=== PATIENT | male | born 1930 | race Caucasian/White ===

== ENCOUNTER 2017-06-14 14:34 | Day surgery (SDC) | payer MEDICARE, BC ==
[2017-06-14 14:41] VITALS: BP 126/68
== END 2017-06-14 14:35 | disposition home or self-care (01) ==
LOC: AMB 14:34
PROVIDERS: ATTEND Ophthalmology
PROC: 085K3ZZ Destruction of Left Lens, Percutaneous Approach (ICD-10-PCS; principal; 2017-06-14 14:00)
DX: H26.492 Other secondary cataract, left eye (principal); Z68.25 Body mass index [BMI] 25.0-25.9, adult

== ENCOUNTER 2019-10-28 10:52 | Observation (INO) ==
[~2019-10-28 10:52] MED LIST: MULTIVIT-MIN/FA/LYCOPEN/LUTEIN 1 TAB TABLET PO SCH
[2019-10-28] MEDS ORDERED: NORMAL SALINE 1,000 ML IV ONE ×2 (11:19→12:20)
[2019-10-28] MEDS ORDERED: ACETAMINOPHEN 650 MG SUPP.RECT RC ONE (11:20)
--- NOTE | 2019-10-28 11:23 | ERNOTE ---
Medical Problem HPI - Narrative Date of Service: 10/28/19 - General Chief Complaint: General Assessment Time Seen by Provider: 10/28/19 11:07 Source: patient, family - Immun/Allergies/Home Medications Allergies/Adverse Reactions: Allergies phenobarbital Adverse Reaction (Mild, Verified 10/28/19 11:39) BLISTERS BEHIND EARS AND FINGERS Home Medications: HOME MEDICATIONS multivitamin 1 tab PO DAILY 02/08/18 [Last Taken Unknown] levothyroxine 50 mcg tablet 50 mcg PO DAILY #90 tab 04/28/19 [Last Taken Unknown] carbidopa ER 25 mg-levodopa 100 mg tablet,extended release 1 tab PO BID 07/27/19 [Last Taken Unknown] Carbidopa/Levodopa [Carbidopa-Levo 25-100 mg Odt] 1 ea PO Q4H 10/28/19 [Last Taken Unknown] - History of Present History Narrative: 89-year-old male brought from home said he was having trouble getting up and walking this morning patient in the emergency room was able to get up from wheelchair walk to the stretcher however he feels very hot and says he hurts all over all his joints his muscles ache denies any cough difficulty breathing pulse ox is 94% on room air has good had some urinary problems in the past and apparently seems to be extremely dehydrated Date (Duration): 10/28/19 Time (Timing): 11:13 Timing: getting worse Severity: moderate Modifying Factors - (Improves): Absent: cold therapy Modifying Factors - (Worsens): Absent: cold therapy Review of Systems - Review of Systems Constitutional: Present: fever, weakness, fatigue, decreased activity level EYE: Present: no symptoms reported ENT: Present: no symptoms reported Respiratory: Present: no symptoms reported Cardiology: Present: no symptoms reported Gastrointestinal/Abdominal: Present: no symptoms reported Genitourinary: Present: frequency, decreased urinary output Musculoskeletal: Present: back pain, muscle stiffness Skin: Present: no symptoms reported Neurological: Present: weakness, pre-existing deficit Endocrine: Present: no symptoms reported Hematologic/Lymphatic: Present: no symptoms reported Psych: Present: no symptoms reported All Other Systems: All systems neg except as marked Medical History (Last Reviewed 10/28/19 @ 11:15 by Bill Villanueva MD) Parkinson's disease (Chronic) 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) Onset Date: ~05/01/13 Medial meniscus tear (Chronic) Onset Date: ~05/18/13 Degenerative joint disease of knee (Chronic) Onset Date: ~05/18/13 Hernia, hiatal (Chronic) Onset Date: ~08/02/13 Colon polyps (Chronic) Onset Date: ~10/09/14 Acne Onset Date: Unknown Arthritis Onset Date: Unknown Urinary retention Onset Date: Unknown Surgical History: Surgical History (Last Reviewed 10/28/19 @ 11:15 by Bill Villanueva MD) Cataract Onset Date: ~07/05/14 bilat H/O colonoscopy Onset Date: ~11/05/14 History of tonsillectomy Onset Date: ~1938 Family History: Family History (Last Reviewed 07/27/19 @ 13:36 by Ruth Albrecht RN) Brother Aneurysm Brother Heart disease Father Cancer colon Mother Heart disease Sister Cancer Social History: (Last Updated 08/11/19 @ 04:51 by Jeremy Larsen DO) Social History: current occupational status: retired Service: Yes branch: [employer] Tobacco: Smoking Status: Never smoker Alcohol: alcohol intake: never Substance Use: substance use type: does not use Dietary Habits: caffeine: Yes Physical Exam - Physical Exam General Appearance: Present: moderate distress, lethargic Head Exam: Present: normal inspection, no evidence of injury Eye Exam: Normal inspection: bilateral Ears, Nose, Throat: Present: pharyngeal erythema, dry mucous membranes Neck: Present: normal inspection, limited range of motion Respiratory: Present: no respiratory distress, normal breath sounds Cardiovascular/Chest: Present: tachycardia Gastrointestinal/Abdominal: Present: normal bowel sounds, nontender Back Exam: Present: normal inspection, decreased range of motion Extremity Exam: Present: non-tender, pedal edema, extremity edema. Absent: no edema, calf tenderness Neurological Exam: Present: alert, oriented, motor weakness, disoriented to time, disoriented to situation Skin Exam: Present: warm/dry Lymphatic Exam: Present: no adenopathy Progress - Results and Orders Patient's Lab Results:: I have reviewed the patient's lab results. Results and Orders: Laboratory Tests 10/28/19 10/28/19 10/28/19 11:24 11:24 11:33 WBC 13.0 H RBC 4.18 L Hgb 13.3 L Hct 38.9 L MCV 93.1 MCH 31.8 H MCHC 34.2 RDW 12.2 MPV 8.7 Neutrophils % 86.9 H Lymphocytes % 5.7 L Sodium Plasma Sodium Potassium Chloride Carbon Dioxide Anion Gap BUN Creatinine Est GFR (Non-Af Amer) BUN/Creatinine Ratio Random Glucose Lactic Acid, Venous Calcium Calcium Adj for Albumin Total Bilirubin AST ALT Alkaline Phosphatase Troponin I B-Natriuretic Peptide Total Protein Albumin Influenza Type A Ag Negative Influenza Type B Ag Negative Group A Strep Rapid Negative 10/28/19 10/28/19 11:33 11:33 WBC RBC Hgb Hct MCV MCH MCHC RDW MPV Neutrophils % Lymphocytes % Sodium 142 Plasma Sodium 142 Potassium 3.7 Chloride 104 Carbon Dioxide 28.3 Anion Gap 13.4 BUN 18 Creatinine 1.08 Est GFR (Non-Af Amer) 69 BUN/Creatinine Ratio 16.7 Random Glucose 110 Lactic Acid, Venous 1.0 Calcium 8.8 Calcium Adj for Albumin 8.8 Total Bilirubin 3.0 H AST 17 ALT 5 L Alkaline Phosphatase 72 Troponin I 0.087 B-Natriuretic Peptide 1205 H Total Protein 6.2 Albumin 3.6 Influenza Type A Ag Influenza Type B Ag Group A Strep Rapid Laboratory Tests 10/28/19 12:15 Urine Color Yellow Urine Appearance Cloudy Urine pH 6.0 Ur Specific [place] 1.015 Urine Protein Negative Urine Glucose (UA) Negative Urine Ketones 15 Urine Blood 150 H Urine Nitrate Positive H Urine Bilirubin Negative Urine Urobilinogen Normal Ur Leukocyte Esterase 500 H Urine RBC 0-5 Urine WBC >50 H Ur Epithelial Cells 0-5 Urine Bacteria 4+ H Urine Culture Comments Culture to follow - Vital Signs Vital Signs: Vital Signs 10/28/19 10:59 Temperature 37.9 C Pulse Rate 114 H Respiratory Rate 22 H Blood Pressure 117/61 O2 Sat by Pulse Oximetry 94 - EKG EKG #1 EKG: NSR EKG read: Interp. by me - X-Ray X-Ray #1 X-Ray: chest Interpretation: Reviewed by Mónica mason w/ radiologist X-ray Comments: No acute disease - Progress/Reassessment Chief Complaint: General Assessment Plan - Plan Plan: All tests are back lab work shows an elevated WBC count of 13,003 infected urine lactic acid is normal urine shows WBCs esterase RBCs we given a dose of Rocephin and due to his age for his Parkinson's will be admitted for continual IV antibiotic Admit to Dr. Zhang Holcomb excepting Departure Clinical Impression: Sepsis due to urinary tract infection - Departure Disposition: Short Term Hospital Inpatient Condition: Stable
[2019-10-28 11:41] LABS: Hematocrit 38.9 % (42.0-52.0); Hemoglobin 13.3 gm/dL (13.5-18.0); Mean Cell Volume 93.1 fl (78-100); Mean Corpuscular Hemoglobin 31.8 pg (27-31); Mean Corpuscular Hgb Conc 34.2 g/dl (32-36); Mean Platelet Volume 8.7 fl (8-11.3); Neutrophil # 11.3 K/mm3 (1.3-6.0); Neutrophil % 86.9 % (42-75.0); Platelet Count 110 K/mm3 (150-450); Red Blood Count 4.18 M/mm3 (4.7-6.0); Red Cell Distribution Width 12.2 % (11.5-14.0)
[2019-10-28 11:59] LABS: Albumin * 3.6 gm/dl (3.4-5.0); Anion Gap 13.4 mmol/L (6.8-13.8); BUN/Creatinine Ratio 16.7 (9.0-21.6); Ca. Corrected For Albumin 8.8 mg/dL (8.4-10.2); Calcium * 8.8 mg/dL (7.9-10.9); Carbon Dioxide 28.3 mmol/L (24-32.6); Potassium 3.7 mmol/L (3.4-4.6); Total Protein 6.2 gm/dL (6.2-8.2)
[2019-10-28 12:00] LABS: Troponin I 0.087 ng/mL (0.00-0.10)
[2019-10-28 12:30] LABS: Urine Appearance Cloudy (CLEAR); Urine Color Yellow
[2019-10-28 12:31] LABS: Urine Bilirubin Negative (NEGATIVE); Urine Blood 150 /ul (NEGATIVE); Urine Ketone 15 mg/dL (NEGATIVE); Urine Nitrite Positive (NEGATIVE); Urine Protein Negative (NEGATIVE); Urine Specific Gravity 1.015 SP.GR. (1.005-1.030); Urine Urobilinogen Normal (NORMAL)
[2019-10-28 12:32] LABS: Urine Bacteria 4+; Urine WBC >50 /hpf (0-5)
[2019-10-28 12:34] LABS: Urine RBC 0-5 /hpf (0-5)
[2019-10-28] MEDS ORDERED: cefTRIAXone SODIUM 1,000 MG/100 ML BAG IV ONE (12:38)
[2019-10-28] MEDS: ACETAMINOPHEN 500 MG TABLET PO PRN (15:30)
--- NOTE | 2019-10-28 17:44 | HP ---
Chief Complaint - Chief Complaint Date of Service: 10/28/19 Time of Service: 17:30 Chief Complaint: Fever, chills, bilateral flank pain, weakness History of Present Illness: Kashif Billings is an 89-year-old male patient who has Parkinson's disease but otherwise has been in good health. About 4 days ago he began having fever and chills and flank pain which is increased over those 4 days. He has increased frequency and urgency and some incontinence. Is evaluated in the emergency room and found to have a urinary tract infection. He does not meet sepsis criteria. However, I suspect he has pyelonephritis and a bacteremia. Blood cultures were drawn in the emergency room. He has been started on Rocephin 1 g in ER and is received a couple of liters of IV fluids there. At the time of my exam he is sitting up in a chair and feeling some better already although still having quite a lot of flank pain bilaterally. His temperature high has been 99 7 here. His other vital signs have been normal. He is not hypotensive or tachycardiac. ED has a mildly elevated white count 13,000 with a left shift in the differential. His lactic acid is only 1.0. Sepsis protocol is therefore not initiated. 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) Onset Date: ~05/01/13 Medial meniscus tear (Chronic) Onset Date: ~05/18/13 Degenerative joint disease of knee (Chronic) Onset Date: ~05/18/13 Hernia, hiatal (Chronic) Onset Date: ~08/02/13 Colon polyps (Chronic) Onset Date: ~10/09/14 Acne Onset Date: Unknown Arthritis Onset Date: Unknown Urinary retention Onset Date: Unknown Surgical History: Surgical History (Last Reviewed 10/28/19 @ 13:59 by Noemi Ornelas RN) Cataract Onset Date: ~07/05/14 bilat H/O colonoscopy Onset Date: ~11/05/14 History of tonsillectomy Onset Date: ~193 Family History: Family History (Last Reviewed 10/28/19 @ 13:59 by Noemi Ornelas RN) Brother Aneurysm Brother Heart disease Father Cancer colon Mother Heart disease Sister Cancer Social History: (Last Reviewed 10/28/19 @ 14:02 by Noemi Ornelas RN) Social History: prison: No Marital status: household members: spouse current occupational status: retired Highest education level completed: Bachelor's degree Service: Yes branch: [employer] Tobacco: Smoking Status: Never smoker Alcohol: alcohol intake: never Substance Use: substance use type: does not use Dietary Habits: caffeine: Yes Type: carbonated beverages Review Of Systems (GEN) - Review of Systems Generalized/Overall Review: Present: Weakness EENTM: Present: No Symptoms Reported Respiratory: Present: No Symptoms Reported Cardiac: Present: No Symptoms Reported Abdominal: Present: No Symptoms Reported Genitourinary: Present: Burning, Urgency, Frequency, Incontinent, Dysuria Musculoskeletal: Present: No Symptoms Reported Neurological: Present: Tremors - Parkinsonianbilateral, Weakness Skin: Present: No Symptoms Reported Endocrine: Present: No Symptoms Reported Allergies/Adverse Reactions: Allergies Allergy/AdvReac Type Severity Reaction Status Date / Time phenobarbital AdvReac Mild BLISTERS Verified 10/28/19 14:03 BEHIND EARS AND FINGERS Home Medications: HOME MEDICATIONS levothyroxine 50 mcg tablet 50 mcg PO DAILY #90 tab 04/28/19 [Last Taken Unknown] carbidopa ER 25 mg-levodopa 100 mg tablet,extended release 1 tab PO BID 07/27/19 [Last Taken Unknown] Carbidopa/Levodopa [Carbidopa-Levo 25-100 mg Odt] 1 ea PO 1100,1600,2300 10/28/19 [Last Taken Unknown] Multivit-Minerals/Folic Acid [Men's Multivitamin Gummies] 400 mcg PO DAILY 10/28/19 [Last Taken Unknown] Exam - Exam Vital Signs: Vital Signs - Last Taken Temp 37.0 C 10/28/19 14:05 Pulse 88 10/28/19 14:05 Resp 16 10/28/19 14:05 BP 120/57 10/28/19 14:05 Pulse Ox 94 10/28/19 14:05 Constitutional: Present: Alert, Oriented x3, Cooperative, Well developed, Well nourished, No distress ENT Exam: Present: normal ENT inspection, hearing grossly normal, pharynx normal Eye Exam: bilateral eye: normal inspection, PERRL, EOMI Neck: Present: non-tender, supple, limited range of motion Back Exam: Present: normal inspection, CVA tenderness (R), CVA tenderness (L) Breasts: Present: Exam deferred Respiratory: Present: chest non-tender, lungs clear, normal breath sounds, no respiratory distress, no accessory muscle use Cardiovascular/Chest: Present: normal peripheral pulses, regular rate, rhythm, no chest tenderness, no edema, no gallop, no JVD, no murmur, no rub Peripheral Pulses: carotid (R): 2+, carotid (L): 2+, radial (R): 2+, radial (L): 2+ Abdomen: Present: Normal bowel sounds, soft, nontender, nondistended, no rebound tenderness, no hepatospenomegaly, no masses /Rectal: Present: Exam deferred Extremity: Present: normal range of motion, non-tender, normal inspection, no pedal edema, no calf tenderness, normal capillary refill Skin Exam: Present: normal color, warm/dry, no cyanosis Lymphatic: Present: no adenopathy Neurologic: Present: foundation assistant II-XII nml as tested, alert, normal mood/affect, oriented x 3 Appearance: Present: appropriate appearance, appropriate insight, neat, no memory impairment Eye contact: Present: cooperative, good eye contact. Absent: normal speech - Speech is weak primarily from his Parkinson's disease. He communicates appro priately however. Thoughts: Present: normal thought pattern, no apparent hallucination Diagnostic Studies: Abnormal Lab Results 10/28/19 10/28/19 10/28/19 Range/Units 11:33 11:33 12:15 WBC 13.0 H (4.0-10.5) K/mm3 RBC 4.18 L (4.7-6.0) M/mm3 Hgb 13.3 L (13.5-18.0) gm/dL Hct 38.9 L (42.0-52.0) % MCH 31.8 H (27-31) pg Plt Count 110 L (150-450) K/mm3 Immature Gran % (Auto) 0.60 H (0.001-0.429) % Immature Gran # (Auto) 0.08 H (0.000-0.0310) K/mm3 Neutrophils % 86.9 H (42-75.0) % Lymphocytes % 5.7 L (20-51) % Neutrophils # 11.3 H (1.3-6.0) K/mm3 Lymphocytes # 0.74 L (1.5-3.5) k/mm3 Total Bilirubin 3.0 H (0.0-1.1) mg/dL ALT 5 L (19-67) U/L B-Natriuretic Peptide 1205 H (5-650) pg/mL Urine Blood 150 H (NEGATIVE) /ul Urine Nitrate Positive H (NEGATIVE) Ur Leukocyte Esterase 500 H (NEGATIVE) /ul Urine WBC >50 H (0-5) /hpf Urine Bacteria 4+ H (NONE) Laboratory Results WBC 13.0 K/mm3 (4.0-10.5) H 10/28/19 11:33 RBC 4.18 M/mm3 (4.7-6.0) L 10/28/19 11:33 Hgb 13.3 gm/dL (13.5-18.0) L 10/28/19 11:33 Hct 38.9 % (42.0-52.0) L 10/28/19 11:33 MCV 93.1 fl (78-100) 10/28/19 11:33 MCH 31.8 pg (27-31) H 10/28/19 11:33 MCHC 34.2 g/dl (32-36) 10/28/19 11:33 RDW 12.2 % (11.5-14.0) 10/28/19 11:33 Plt Count 110 K/mm3 (150-450) L 10/28/19 11:33 MPV 8.7 fl (8-11.3) 10/28/19 11:33 Immature Gran % (Auto) 0.60 % (0.001-0.429) H 10/28/19 11:33 Immature Gran # (Auto) 0.08 K/mm3 (0.000-0.0310) H 10/28/19 11:33 Neutrophils % 86.9 % (42-75.0) H 10/28/19 11:33 Lymphocytes % 5.7 % (20-51) L 10/28/19 11:33 Monocytes % 6.6 % (0.0-9) 10/28/19 11:33 Eosinophils % 0.0 % (0.0-3.0) 10/28/19 11:33 Basophils % 0.2 % (0.0-1.0) 10/28/19 11:33 Nucleated RBC % 0.0 k/mm3 (0-1) 10/28/19 11:33 Neutrophils # 11.3 K/mm3 (1.3-6.0) H 10/28/19 11:33 Lymphocytes # 0.74 k/mm3 (1.5-3.5) L 10/28/19 11:33 Monocytes # 0.9 k/mm3 (0.0-1.0) 10/28/19 11:33 Eosinophils # 0.0 k/mm3 (0.0-0.7) 10/28/19 11:33 Absolute Basophils 0.0 k/mm3 (0.0-0.1) 10/28/19 11:33 Sodium 142 mmol/L (132-142) 10/28/19 11:33 Plasma Sodium 142 mmol/L (130-142) 10/28/19 11:33 Potassium 3.7 mmol/L (3.4-4.6) 10/28/19 11:33 Chloride 104 mmol/L (97-106) 10/28/19 11:33 Carbon Dioxide 28.3 mmol/L (24-32.6) 10/28/19 11:33 Anion Gap 13.4 mmol/L (6.8-13.8) 10/28/19 11:33 BUN 18 mg/dL (6-23) 10/28/19 11:33 Creatinine 1.08 mg/dL (0.4-1.4) 10/28/19 11:33 Est GFR (Non-Af Amer) 69 mL/min (60-130) 10/28/19 11:33 BUN/Creatinine Ratio 16.7 (9.0-21.6) 10/28/19 11:33 Random Glucose 110 mg/dL (70-110) 10/28/19 11:33 Lactic Acid, Venous 1.0 mmol/L (0.4-2.0) 10/28/19 11:33 Calcium 8.8 mg/dL (7.9-10.9) 10/28/19 11:33 Calcium Adj for Albumin 8.8 mg/dL (8.4-10.2) 10/28/19 11:33 Total Bilirubin 3.0 mg/dL (0.0-1.1) H 10/28/19 11:33 AST 17 U/L (0-48) 10/28/19 11:33 ALT 5 U/L (19-67) L 10/28/19 11:33 Alkaline Phosphatase 72 U/L (50-170) 10/28/19 11:33 Troponin I 0.087 ng/mL (0.00-0.10) 10/28/19 11:33 B-Natriuretic Peptide 1205 pg/mL (5-650) H 10/28/19 11:33 Total Protein 6.2 gm/dL (6.2-8.2) 10/28/19 11:33 Albumin 3.6 gm/dl (3.4-5.0) 10/28/19 11:33 Urine Color Yellow 10/28/19 12:15 Urine Appearance Cloudy (CLEAR) 10/28/19 12:15 Urine pH 6.0 pH (5.0-7.0) 10/28/19 12:15 Ur Specific [place] 1.015 SP.GR. (1.005-1.030) 10/28/19 12:15 Urine Protein Negative mg/dL (NEGATIVE) 10/28/19 12:15 Urine Glucose (UA) Negative mg/dL (NEGATIVE) 10/28/19 12:15 Urine Ketones 15 mg/dL (NEGATIVE) 10/28/19 12:15 Urine Blood 150 /ul (NEGATIVE) H 10/28/19 12:15 Urine Nitrate Positive (NEGATIVE) H 10/28/19 12:15 Urine Bilirubin Negative mg/dl (NEGATIVE) 10/28/19 12:15 Urine Urobilinogen Normal EU/dl (NORMAL) 10/28/19 12:15 Ur Leukocyte Esterase 500 /ul (NEGATIVE) H 10/28/19 12:15 Urine RBC 0-5 /hpf (0-5) 10/28/19 12:15 Urine WBC >50 /hpf (0-5) H 10/28/19 12:15 Ur Epithelial Cells 0-5 /hpf (0-5) 10/28/19 12:15 Urine Bacteria 4+ (NONE) H 10/28/19 12:15 Urine Culture Comments Culture to follow 10/28/19 12:15 Influenza Type A Ag Negative (NEGATIVE) 10/28/19 11:24 Influenza Type B Ag Negative (NEGATIVE) 10/28/19 11:24 Group A Strep Rapid Negative (NEGATIVE) 10/28/19 11:24 Assessment/Plan - Narrative Narrative: 1. Continue IV Rocephin 1 g every 24 hours 2. Continue IV fluids at 125 cc/h and monitor for fluid overload 3. Begin early ambulation and LAILA hose for DVT prophylaxis 4. Continue home medications - Assessment/Plan (1) Acute pyelonephritis Problem: Acute (2) Neutrophilic leukocytosis Problem: Acute (3) Parkinson's disease Problem: Chronic
[2019-10-28] MEDS: NORMAL SALINE 1,000 ML IV PRN (18:20)
[2019-10-28] MEDS ORDERED: CARBIDOPA/LEVODOPA CR 25/100 1 TAB TABLET.SA PO SCH (21:00)
[2019-10-28] MEDS: CARBIDOPA/LEVODOPA 25/100 1 TAB TABLET PO SCH (23:20)
[2019-10-29] MEDS: NORMAL SALINE 1,000 ML IV PRN ×2 (02:26→10:34)
[2019-10-29] MEDS ORDERED: LEVOTHYROXINE SODIUM 50 MCG TABLET PO SCH (06:00)
[2019-10-29] MEDS ORDERED: CARBIDOPA/LEVODOPA CR 25/100 1 TAB TABLET.SA PO SCH (07:00)
[2019-10-29 07:05] LABS: Hematocrit 36.7 % (42.0-52.0); Hemoglobin 12.5 gm/dL (13.5-18.0); Mean Cell Volume 94.1 fl (78-100); Mean Corpuscular Hemoglobin 32.1 pg (27-31); Mean Corpuscular Hgb Conc 34.1 g/dl (32-36); Neutrophil # 9.9 K/mm3 (1.3-6.0); Neutrophil % 87.7 % (42-75.0); Platelet Count 96 K/mm3 (150-450); Red Cell Distribution Width 12.5 % (11.5-14.0); White Blood Count 11.2 K/mm3 (4.0-10.5)
[2019-10-29 07:17] LABS: Albumin * 2.8 gm/dl (3.4-5.0); Anion Gap 12.5 mmol/L (6.8-13.8); BUN/Creatinine Ratio 18.6 (9.0-21.6); Calcium * 8.4 mg/dL (7.9-10.9); Potassium 3.5 mmol/L (3.4-4.6); Total Protein 5.4 gm/dL (6.2-8.2)
[2019-10-29] MEDS: ACETAMINOPHEN 500 MG TABLET PO PRN (07:30)
[2019-10-29] MEDS ORDERED: MULTIVITAMINS 1 TAB TAB.CHEW PO SCH (09:00)
[2019-10-29] MEDS: CARBIDOPA/LEVODOPA 25/100 1 TAB TABLET PO SCH (10:36)
--- NOTE | 2019-10-29 12:47 | DS ---
(1) Acute pyelonephritis Problem: Acute (2) Neutrophilic leukocytosis Problem: Acute (3) Parkinson's disease Problem: Chronic Date of Discharge:: 10/29/19 Hospital Course: Kashif Billings is an 89-year-old male patient with known Parkinson's disease. He had developed fever and weakness and became nonambulatory at home and so was brought to the hospital. He was evaluated in the emergency room and found to have a urinary tract infection. He is also been having bilateral flank pain with fever at home for the past 4 days. The white count was slightly elevated at 13,200 and is down to 11,200 this morning. The differential is shifted left. He has not had any hypotension, tachycardia, or elevated lactic acid. His Edward's test is positive bilaterally. The urine reflected definite urinary tract infection. He has been placed on oral antibiotics and is feeling much better already. He can finish his treatment at home. Procedures Performed: none Results and Findings: Pending Mircobiology Results 10/28/19 11:55 Blood Blood Culture - Preliminary NO GROWTH 24 HOURS 10/28/19 11:33 Blood Blood Culture - Preliminary NO GROWTH 24 HOURS 10/28/19 12:15 Urine,Catheterized Urine Culture - Preliminary Gram Negative Bacilli Lab Pending Results 10/28/19 11:24: Influenza Type A Ag Negative, Influenza Type B Ag Negative 10/28/19 11:24: Group A Strep Rapid Negative 10/28/19 11:33: WBC 13.0 H, RBC 4.18 L, Hgb 13.3 L, Hct 38.9 L, MCV 93.1, MCH 31.8 H, MCHC 34.2, RDW 12.2, Plt Count 110 L, MPV 8.7, Immature Gran % (Auto) 0.60 H, Immature Gran # (Auto) 0.08 H, Neutrophils % 86.9 H, Lymphocytes % 5.7 L, Monocytes % 6.6, Eosinophils % 0.0, Basophils % 0.2, Nucleated RBC % 0.0, Neutrophils # 11.3 H, Lymphocytes # 0.74 L, Monocytes # 0.9, Eosinophils # 0.0, Absolute Basophils 0.0 10/28/19 11:33: Sodium 142, Plasma Sodium 142, Potassium 3.7, Chloride 104, Carbon Dioxide 28.3, Anion Gap 13.4, BUN 18, Creatinine 1.08, Est GFR (Non-Af Amer) 69, BUN/Creatinine Ratio 16.7, Random Glucose 110, Calcium 8.8, Calcium Adj for Albumin 8.8, Total Bilirubin 3.0 H, AST 17, ALT 5 L, Alkaline Phosphatase 72, Troponin I 0.087, B-Natriuretic Peptide 1205 H, Total Protein 6.2, Albumin 3.6 10/28/19 11:33: Lactic Acid, Venous 1.0 10/28/19 12:15: Urine Color Yellow, Urine Appearance Cloudy, Urine pH 6.0, Ur Specific [place] 1.015, Urine Protein Negative, Urine Glucose (UA) Negative, Urine Ketones 15, Urine Blood 150 H, Urine Nitrate Positive H, Urine Bilirubin Negative, Urine Urobilinogen Normal, Ur Leukocyte Esterase 500 H, Urine RBC 0-5, Urine WBC >50 H, Ur Epithelial Cells 0-5, Urine Bacteria 4+ H, Urine Culture Comments Culture to follow 10/29/19 06:30: WBC 11.2 H, RBC 3.90 L, Hgb 12.5 L, Hct 36.7 L, MCV 94.1, MCH 32.1 H, MCHC 34.1, RDW 12.5, Plt Count 96 L, MPV 9.0, Immature Gran % (Auto) 0.30, Immature Gran # (Auto) 0.03, Neutrophils % 87.7 H, Lymphocytes % 6.7 L, Monocytes % 5.0, Eosinophils % 0.0, Basophils % 0.3, Nucleated RBC % 0.0, Neutrophils # 9.9 H, Lymphocytes # 0.75 L, Monocytes # 0.6, Eosinophils # 0.0, Absolute Basophils 0.0 10/29/19 06:30: Sodium 139, Plasma Sodium 139, Potassium 3.5, Chloride 106, Carbon Dioxide 24.0, Anion Gap 12.5, BUN 16, Creatinine 0.86, Est GFR (Non-Af Amer) 89 D, BUN/Creatinine Ratio 18.6, Random Glucose 125 H, Calcium 8.4, Calcium Adj for Albumin 9.0, Total Bilirubin 3.0 H, AST 18, ALT 3 L, Alkaline Phosphatase 57, Total Protein 5.4 L, Albumin 2.8 L Discharge Location: Home Disposition: Home self-care Condition: Stable Face to Face Encounter completed per CMS Guidelines: No Discharge Activity: Activity as tolerated Discharge Diet: General/regular food Additional Patient Instructions (free text): Follow-up with Dr. Valero within the next couple of weeks. Fill antibiotic prescription tomorrow. Complete Home Medications List: Complete Home Medication List: levothyroxine 50 mcg tablet 50 mcg PO DAILY #90 tab 04/28/19 carbidopa ER 25 mg-levodopa 100 mg tablet,extended release 1 tab PO BID 07/27/19 Carbidopa/Levodopa [Carbidopa-Levo 25-100 mg Odt] 1 ea PO 1100,1600,2300 10/28/19 Multivit-Minerals/Folic Acid [Men's Multivitamin Gummies] 400 mcg PO DAILY 10/28/19 Acetaminophen [Tylenol] 500 mg PO Q6H PRN tab 10/29/19 Cefuroxime Axetil [Ceftin] 250 mg PO Q12H #20 tab 10/29/19
[2019-10-29 14:58] VITALS: BP 113/55
== END 2019-10-29 15:05 | disposition home or self-care (01) ==
LOC: MS 10:52 → ER 10:52 → MS 13:18
PROVIDERS: ADMIT Family Medicine; ATTEND Family Medicine
DX: M15.9 Polyosteoarthritis, unspecified; N10 Acute pyelonephritis; E86.0 Dehydration; G20 Parkinson's disease; B96.20 Unspecified Escherichia coli [E. coli] as the cause of diseases classified elsewhere
CPT/HCPCS: 36415; 71020; 71046; 80053; 81001; 82248; 83519; 83605; 83880; 84484; 85025; 87040; 87081; 87086; 87400; 87430; 87449; 93005; 96361; 96365; 96366; 99285; G0378